=== PATIENT | male | born 1985 | race Hispanic/Latino ===

== ENCOUNTER 2017-07-12 08:36 | Emergency (ER) | payer OTHER ==
[~2017-07-12] VITALS: Ht 172.7 cm; Wt 70.3 kg
[2017-07-12 09:43] VITALS: BP 122/62
== END 2017-07-12 09:51 | disposition home or self-care (01) ==
LOC: FSED 08:36
DX: R31.0 Gross hematuria (principal)
CPT/HCPCS: 81003; 87086; 99283